=== PATIENT | female | born 1990 | race American Indian/Alaskan Native ===

== ENCOUNTER 2020-09-11 15:09 | Emergency (ER) | payer BC, OTHER ==
[2020-09-11 17:30] VITALS: BP 107/68
[2020-09-11] MEDS ORDERED: METOCLOPRAMIDE 10 MG/2 ML INJ IV ONE (20:17)
[2020-09-11] MEDS ORDERED: FAMOTIDINE 20 MG/2 ML INJ IV ONE (20:17)
[2020-09-11] MEDS ORDERED: SODIUM CHLORIDE 0.9% 1000 ML 1,000 ML IV ONE (20:17)
[2020-09-11] MEDS ORDERED: DICYCLOMINE 20 MG TAB PO ONE (20:18)
[2020-09-11 20:40] LABS: Basophils # (Auto) 0.1 K/mm3 (0.0-0.1); Basophils % (Auto) 0.8 % (0.0-1.8); Eosinophils # (Auto) 0.1 K/mm3 (0.0-0.4); Eosinophils % (Auto) 1.7 % (0.0-4.3); Hematocrit 39.8 % (30.3-42.9); Hemoglobin 13.5 gm/dl (10.1-14.3); Lymphocytes # (Auto) 2.5 K/mm3 (1.2-5.4); Mean Corpuscular HGB Conc 34 % (30-34); Mean Corpuscular Volume 84 fl (79-97); Monocytes # (Auto) 0.5 K/mm3 (0.0-0.8); Monocytes % (Auto) 6.8 % (0.0-7.3); Platelet Count 149 K/mm3 (140-440); Red Blood Count 4.72 M/mm3 (3.65-5.03); Red Cell Distribution Width 13.3 % (13.2-15.2)
[2020-09-11 20:55] LABS: Alanine Aminotransferase 11 units/L (7-56); Albumin 4.1 g/dL (3.9-5); Blood Urea Nitrogen 14 mg/dL (7-17); Calcium 8.7 mg/dL (8.4-10.2); Hemolysis Index 8
[2020-09-11 21:06] LABS: BUN/Creatinine Ratio 20
--- NOTE | 2020-09-11 21:27 | XRay Report ---
ABDOMEN 3 VIEW(S) INDICATION / CLINICAL INFORMATION: n/v. COMPARISON: None available. FINDINGS: TUBES / LINES: None. BOWEL GAS PATTERN: No significant abnormality. FREE AIR / EXTRALUMINAL GAS: None seen. ADDITIONAL FINDINGS: No significant additional findings. CHEST: Visualized chest shows no significant abnormality. IMPRESSION: 1. No significant abnormality. Signer Name: Stepan Mark DO Signed: 09/11/2020 9:22 PM Workstation Name: [id number]
--- NOTE | 2020-09-11 21:38 | Emergency Department Report ---
ED N/V/D HPI - General Chief complaint: Abdominal Pain Stated complaint: ABD PAIN, NAUSEA Time Seen by Provider: 09/11/20 20:16 Source: patient Mode of arrival: Ambulatory Limitations: No Limitations - History of Present Illness Initial comments: This is a 30-year-old female nontoxic, well nourished in appearance, no acute signs of distress presents to the ED with c/o of acute on chronic intermittent nausea and vomiting with some abdominal cramping x several months. Patient stated that since she became active services again symptoms start to flare. Patient believes that this is related to increased stress levels. Has been following up with gastro doctor and was told has IBS. Patient stated symptoms causes some burning sensation to her chest and worse during vomiting episode. Patient describes vomiting as food content. Currently, patient denies any abdominal pain, chest pain, short of breath, fever, chills, headache, stiff neck, numbness or tingling. Patient denies any diarrhea or constipation. Denies any blood in stool. Patient denies any recent travels. Patient denies any drug allergies and significant past medical history. MD complaint: nausea, vomiting -: month(s) Associated Abdominal Pain: No Radiation: none Severity: mild Pain Scale: 0 Consistency: intermittent Improves with: none Worsens with: none Associated Symptoms: nausea/vomiting. denies: myalgias, chest pain, cough, diaphoresis, fever/chills, headaches, loss of appetite, malaise, rash, dysuria, shortness of breath, syncope, weakness - Related Data Previous Rx's Medication Instructions Recorded Last Taken Type Dicyclomine [Bentyl] 20 mg PO Q12H PRN #12 tablet 09/11/20 Unknown Rx Omeprazole 40 mg PO ONCE #30 capsule. 09/11/20 Unknown Rx Allergies Allergy/AdvReac Type Severity Reaction Status Date / Time pecan nut Allergy Intermediate Nausea Verified 09/11/20 17:31 walnut Allergy Intermediate Nausea Verified 09/11/20 17:31 ED Review of Systems ROS: Stated complaint: ABD PAIN, NAUSEA Other details as noted in HPI Comment: All other systems reviewed and negative Constitutional: denies: chills, fever Eyes: denies: eye pain, eye discharge, vision change ENT: denies: ear pain, throat pain Respiratory: denies: cough, shortness of breath, wheezing Cardiovascular: denies: chest pain, palpitations Endocrine: no symptoms reported Gastrointestinal: nausea, vomiting. denies: abdominal pain, diarrhea, constipation, hematemesis, melena, hematochezia Genitourinary: denies: urgency, dysuria, discharge Musculoskeletal: denies: back pain, joint swelling, arthralgia Skin: denies: rash, lesions Neurological: denies: headache, weakness, paresthesias Psychiatric: denies: anxiety, depression Hematological/Lymphatic: denies: easy bleeding, easy bruising ED Past Medical Hx - Medications Home Medications: Home Medications Medication Instructions Recorded Confirmed Last Taken Type Dicyclomine [Bentyl] 20 mg PO Q12H PRN #12 tablet 09/11/20 Unknown Rx Omeprazole 40 mg PO ONCE #30 capsule. 09/11/20 Unknown Rx ED Physical Exam - General Limitations: No Limitations General appearance: alert, in no apparent distress - Head Head exam: Present: atraumatic, normocephalic - Eye Eye exam: Present: normal appearance - Neck Neck exam: Present: normal inspection, full ROM. Absent: lymphadenopathy - Respiratory Respiratory exam: Present: normal lung sounds bilaterally. Absent: respiratory distress, wheezes, rales, rhonchi, stridor, chest wall tenderness, accessory muscle use, decreased breath sounds, prolonged expiratory - Cardiovascular Cardiovascular Exam: Present: regular rate, normal rhythm, normal heart sounds. Absent: bradycardia, tachycardia, irregular rhythm, systolic murmur, diastolic murmur, rubs, gallop - GI/Abdominal GI/Abdominal exam: Present: soft, normal bowel sounds. Absent: distended, tenderness, guarding, rebound, rigid, diminished bowel sounds - Extremities Exam Extremities exam: Present: normal inspection, full ROM - Back Exam Back exam: Present: normal inspection, full ROM. Absent: tenderness, CVA tenderness (R), CVA tenderness (L), muscle spasm, paraspinal tenderness, vertebral tenderness, rash noted - Neurological Exam Neurological exam: Present: alert, oriented X3, normal gait - Psychiatric Psychiatric exam: Present: normal affect, normal mood - Skin Skin exam: Present: warm, dry, intact, normal color. Absent: rash ED Course Vital Signs 09/11/20 17:27 Temperature 98.6 F Pulse Rate 75 Respiratory 16 Rate Blood Pressure 107/68 [Right] O2 Sat by Pulse 100 Oximetry - Reevaluation(s) Reevaluation #1: 09/11/20 21:35 Patient is speaking in full sentences with no signs of distress noted. ED Medical Decision Making - Lab Data Result diagrams: 09/11/20 20:21 09/11/20 20:21 - EKG Data 09/11/20 22:16 Normal sinus rhythm at [address] or T wave abnormalities. signed and reviewed by MD. - Radiology Data [facility] [address] [place] [address] XRay Report Signed Patient: ANCA BATES MR#: [id number] : 1990 Acct:[id number] Age/Sex: 30 / F ADM Date: 09/11/20 Loc: ED Attending Dr: Ordering Physician: JOSEFINA HERNANDEZ NP Date of Service: 09/11/20 Procedure(s): XR abd series w cxr 1V Accession Number(s): [id number] cc: JOSEFINA HERNANDEZ NP Fluoro Time In Minutes: ABDOMEN 3 VIEW(S) INDICATION / CLINICAL INFORMATION: n/v. COMPARISON: None available. FINDINGS: TUBES / LINES: None. BOWEL GAS PATTERN: No significant abnormality. FREE AIR / EXTRALUMINAL GAS: None seen. ADDITIONAL FINDINGS: No significant additional findings. CHEST: Visualized chest shows no significant abnormality. IMPRESSION: 1. No significant abnormality. Signer Name: Stepan Tomlinson DO Signed: 09/11/2020 9:22 PM Workstation Name: [id number] Transcribed By: NASREEN Dictated By: STEPAN TOMLINSON DO Electronically Authenticated By: STEPAN TOMLINSON DO Signed Date/Time: 09/11/202121 D D/ 20 TD/TT: - Medical Decision Making This is a 30-year-old female that presents with nausea and vomiting. Patient is stable and was examined by me. There is no abdominal tenderness. Negative signs of symptoms of appendicitis, cholecystitis or acute abdomen. Labs obtained. UA obtained. Xr abdomen/chest xray obtained and dictated by the radiologist. Patient is notified of the report with no questions noted by the patient. Vital signs are stable prior to discharge. Patient received Zofran and 1L Normal saline in the ED which patient stated symptoms has resovled and subsided. A by mouth challenge has been obtained and patient tolerated well with no nausea vomiting. Patient was also instructed to Follow-up with a primary care doctor in 3-5 days or if symptoms worsen and continue return to emergency room as soon as possible. At time of discharge, the patient does not seem toxic or ill in appearance. No acute signs of distress noted. Patient agrees to discharge treatment plan of care. No further questions noted by the patient. Critical care attestation.: If time is entered above; I have spent that time in minutes in the direct care of this critically ill patient, excluding procedure time. ED Disposition Clinical Impression: GERD (gastroesophageal reflux disease) Qualifiers: Esophagitis presence: esophagitis presence not specified Qualified Code(s): K21.9 - Gastro-esophageal reflux disease without esophagitis IBS (irritable bowel syndrome) Qualifiers: Irritable bowel syndrome type: unspecified Qualified Code(s): K58.9 - Irritable bowel syndrome without diarrhea Disposition: TO HOME OR SELFCARE Is pt being admited?: No Does the pt Need Aspirin: No Condition: Stable Instructions: Gastroesophageal Reflux Disease, Adult, [id number], Irritable Bowel Syndrome, Adult, Abdominal Pain (ED) Additional Instructions: Follow-up with a primary care and producer doctor in 3-5 days or if symptoms worsen and continue return to emergency room as soon as possible. Prescriptions: Dicyclomine [Bentyl] 20 mg PO Q12H PRN #12 tablet PRN Reason: abdominal pain Omeprazole 40 mg PO ONCE #30 capsule. Referrals: SAVANNAH ALLEN MD [Primary Care Provider] - 3-5 Days MIRANDA LAKE MD [Staff Physician] - 3-5 Days [facility] [Provider Group] - 3-5 Days Forms: Work/School Release Form(ED) Time of Disposition: 21:45
[2020-09-11 22:04] LABS: Bacteria,Urine 1+ /HPF (Negative); Bilirubin,Urine NEG (Negative); Blood,Urine NEG (Negative); Color,Urine Straw (Yellow); Protein,Urine <15 mg/dL mg/dL (Negative); Urobilinogen,Urine < 2.0 mg/dL (<2.0); WBC,Urine < 1.0 /HPF (0.0-6.0)
--- NOTE | 2020-09-12 10:22 | Electrocardiograph Report ---
[facility] Test Date: 2020-09-11 Test Time: 17:43:07 Pat Name: ANCA BATES Department: Room: Gender: F [employer]: JALEN : 1990 Requested By: YOLANDA HE Order Number: [id number] Reading MD: Flaca Stiles Measurements Intervals [place] Rate: 66 P: 35 CT: 145 QRS: 75 QRSD: 83 T: 49 QT: 423 QTc: 443 Interpretive Statements Sinus rhythm No previous ECG available for comparison Electronically Signed On 09-12-2020 10:21:46 EDT by Flaca Stiles
== END 2020-09-11 22:30 | disposition home or self-care (01) ==
LOC: ED 15:09
DX: K21.9 Gastro-esophageal reflux disease without esophagitis (principal); K58.9 Irritable bowel syndrome, unspecified; Z79.899 Other long term (current) drug therapy; Z91.018 Allergy to other foods
CPT/HCPCS: 36415; 74022; 80053; 81001; 83690; 84703; 85025; 93005; 96361; 96374; 96375; 99284; J2765; J7030